=== PATIENT | female | born 1990 | race Caucasian/White ===

== ENCOUNTER 2019-11-14 11:37 | Emergency (ER) | payer OTHER, SELFPAY ==
[2019-11-14 11:42] VITALS: BP 123/80; PULSE 87; RESP 16; TEMP 37; O2SAT 98
--- NOTE | 2019-11-14 11:58 | ED.GENADULT ---
HPI - General Adult General Chief complaint: Upper Respiratory Infection Stated complaint: sore throat cough aches Time Seen by Provider: 11/14/19 11:58 Source: patient and RN notes reviewed Mode of arrival: ambulatory Limitations: no limitations History of Present Illness HPI narrative: 29-year-old female with complaints of upper respiratory infection symptoms, sore throat, body aches, congestion, and cough for 1 day. No treatment. Dry cough with intermittent productive cough (yellow phlegm). Rhinorrhea and nasal congestion. Exacerbating factors consists of smoke exposure. No high fevers or chills. No nausea, vomiting, and abdominal pain. Denies chest pain, dyspnea, coughing up blood, difficulty swallowing, jaw pain, dental pain, facial pain, foreign body sensation, and rash. Dezaray denies being , LMP 1 month ago. Some parts of this dictation were generated by voice recognition software and may contain typographical and/or grammatical inaccuracies. Related Data Home Medications Medication Instructions Recorded Confirmed [facility] 11/14/19 Allergies Allergy/AdvReac Type Severity Reaction Status Date / Time No Known Allergies Allergy Unknown Unverified 11/14/19 11:40 Review of Systems Review of Systems: Narrative: CONSTITUTIONAL: Denies fever, chills, sweats. EYES: Denies visual changes, redness, discharge. ENT: Complains of rhinorrhea, congestion, sore throat. Denies otalgia. CARDIOVASCULAR: Denies chest pain, palpitations, edema. RESPIRATORY: Denies dyspnea, wheezing. Complains of dry cough, intermittent productive cough. GASTROINTESTINAL: Denies abdominal pain, nausea, vomiting, diarrhea. GENITOURINARY: Denies dysuria, hematuria, abnormal discharge. SKIN: Denies rash or itching. MUSCULOSKELETAL: Denies acute back pain, joint pain. Complains of myalgia. NEUROLOGIC: Denies numbness or focal weakness. PSYCHIATRIC: Denies anxiety or depression. All systems reviewed & are unremarkable except as noted in HPI and below. [facility] Past Medical History Medical History (Updated 11/21/19 @ 16:30 by PAUL Miranda) Anxiety Asthma Depression Surgical History Surgical History (Updated 11/21/19 @ 16:30 by PAUL Miranda) History of tubal ligation Family History Family History (Updated 11/21/19 @ 16:30 by PAUL Miranda) Other No significant family history Social History Social History (Updated 11/21/19 @ 16:34 by PAUL Miranda) Smoking status: Former smoker Tobacco type: e-cigarettes Smoking end date: 10/05/19 Additional smoking assessment comments: stopped smoking cigarettes 09/23 and started vaping Alcohol intake: current Alcohol use details: occasionally Substance use: never Living arrangements: with family Occupation/Education: student Gender identity (if verbalized by the patient): Female Comments At time of signature, agree with nurse past medical, surgical, social, and family history. There is no relevant family history pertinent to the presenting complaint. Exam Narrative: Exam Narrative: GENERAL: This is a well-nourished, well-developed patient, in no apparent distress. Speaks in full sentences and ambulates with steady gait without dyspnea. HEAD: normocephalic, atraumatic. EYES: PERRL. Sclera clear/white. Vision is grossly intact. EARS: External ears normal, auditory canals clear and without drainage, TMs normal without perforation. Hearing grossly intact. NOSE: External nose normal with no obvious nasal discharge, nares with mild redness and enlarged turbinates, clear rhinorrhea. THROAT: Mucous membranes moist, posterior pharynx with PND, mild erythema, and no exudate to tonsils. Tonsils normal. No drainage, no concern for Peritonsillar abscess. No drooling, trismus, or neck swelling. NECK: Neck supple, non-tender without lymphadenopathy, masses or thyromegaly. CARDIOVASCULAR: Regular rate and rhythm without murmurs, ga
== END 2019-11-14 12:45 | disposition home or self-care (01) ==
PROVIDERS: Emergency Provider Nurse Practitioner Family
DX: B34.9 Viral infection, unspecified (principal)
CPT/HCPCS: 87081; 87804; 87880; 99213; G0463

== ENCOUNTER 2021-02-08 08:14 | Emergency (ER) | payer OTHER, SELFPAY ==
--- NOTE | 2021-02-08 08:17 | ED.URI ---
HPI - URI/Sore Throat General Chief Complaint: Upper Respiratory Infection Stated Complaint: sore throat Source: patient and RN notes reviewed Mode of arrival: ambulatory Limitations: no limitations History of Present Illness HPI Narrative: 30-year-old female presents with concern for sore throat. Reports 3 days ago she removed tonsil stones from the left side and since then has been having swollen, painful tonsil. Reports she has tried several saxe-[id number]-[id number] remedies such as Tylenol, ibuprofen, salt water gargles, cold and flu medicines with no relief. She denies rhinorrhea, nasal congestion, headache, nausea. Denies fever, body aches, chills, cough, shortness of breath. Denies any known sick contacts. MD elicited complaint: sore throat Related Data Home Medications Medication Instructions Recorded Confirmed albuterol sulfate 90 mcg INHALATION PRN 02/08/21 02/08/21 cetirizine [Zyrtec] 10 mg PO DAILY 02/08/21 02/08/21 fluticasone propionate [Flovent 220 mcg INHALATION DAILY 02/08/21 02/08/21 HFA] montelukast 10 mg PO DAILY 02/08/21 02/08/21 Allergies Allergy/AdvReac Type Severity Reaction Status Date / Time No Known Allergies Allergy Unknown Verified 02/08/21 08:45 Review of Systems Review of Systems: Narrative: CONSTITUTIONAL: Denies malaise, chills, sweats, or fever. EYES: Denies visual changes, redness, or discharge. ENT: Denies rhinorrhea, congestion, sinus pain, otalgia. Reports sore throat, swollen tonsils. CARDIOVASCULAR: Denies chest pain, palpitations, or edema. RESPIRATORY: Denies cough dyspnea. GASTROINTESTINAL: Denies abdominal pain, nausea, vomiting, diarrhea SKIN: Denies rash or itching. MUSCULOSKELETAL: Denies myalgia. NEUROLOGIC: Denies headache. All systems reviewed & are unremarkable except as noted in HPI and below PMFSH Past Medical History Medical History (Updated 02/08/21 @ 08:58 by Jessica Lan NP) Anxiety Asthma Depression Surgical History Surgical History (Updated 11/21/19 @ 16:30 by PAUL Miranda) History of tubal ligation Family History Family History (Updated 11/21/19 @ 16:30 by PAUL Miranda) Other No significant family history Social History Social History (Updated 11/21/19 @ 16:34 by PAUL Miranda) Smoking status: Former smoker Tobacco type: e-cigarettes/vaping Smoking end date: 10/05/19 Additional smoking assessment comments: stopped smoking cigarettes 09/23 and started vaping Alcohol intake: current Substance use: never Gender identity (if verbalized by the patient): Female Comments At time of signature, agree with nursing past medical, surgical, social and family history. There is no relevant family history pertinent to the presenting complaint Exam Narrative: Exam Narrative: GENERAL: Well-appearing, well-nourished, and in no acute distress. HEAD: Normocephalic EYES: PERRLA, conjunctivae clear ENT: Nares clear, turbinates pink, no discharge. Mucous membranes moist. TM pearly pitts with sharp light reflex bilaterally; no tragal tenderness. Oropharynx erythematous without lesions. Left tonsil erythematous TM enlarged and without exudate, no drooling, no hoarseness, no trismus, uvula midline. NECK: Supple. No lymphadenopathy CHEST: Clear to auscultation, breath sounds equal. No wheezing, rhonchi, rales, or stridor. No respiratory distress, speaks in full sentences. HEART: Regular rate and rhythm. No murmur heard. SKIN: Warm, dry, no rash. NEURO: Alert and oriented x3. PSYCH: Normal mood and affect Course Course Emergency Course: Patient is aware of diagnosis, understands and agrees to treatment plan. Anticipatory guidance given. Patient agrees to follow-up as directed and is aware of reasons to seek care at the emergency department. Portions of this record may have been created with voice recognition software Vital Signs Vital signs: Vital Signs Temperature 97.2 F L 02/08/21 08:25 Pulse Rate 82
[2021-02-08 08:25] VITALS: BP 130/80; PULSE 82; RESP 20; TEMP 36.2; O2SAT 99
== END 2021-02-08 09:04 | disposition home or self-care (01) ==
PROVIDERS: Emergency Provider Nurse Practitioner; PCP Internal Medicine
DX: J03.90 Acute tonsillitis, unspecified (principal); F17.200 Nicotine dependence, unspecified, uncomplicated; J45.909 Unspecified asthma, uncomplicated
CPT/HCPCS: 87081; 87880; 99213; G0463

== ENCOUNTER → 2021-12-20 14:35 | Outpatient (CLI) | payer OTHER, SELFPAY ==
--- NOTE | ~2021-12-20 | XR_ITS ---
EXAMINATION: XR chest 2V 12/20/2021 14:52 INDICATION: Acute bronchitis PROCEDURE: 2 view chest COMPARISON: No prior studies for comparison. FINDINGS: The lungs are clear. The cardiomediastinal silhouette is within normal limits. There are no pleural effusions. There is no pneumothorax suspected. IMPRESSION: 1: NO ACUTE CARDIOPULMONARY DISEASE. Reviewed, dictated and finalized at location B.
== END ==
PROVIDERS: PCP Internal Medicine; Visit Provider Internal Medicine
DX: J20.9 Acute bronchitis, unspecified (principal)
CPT/HCPCS: 71046

== ENCOUNTER → 2022-01-11 10:23 | Outpatient (CLI) | payer OTHER, SELFPAY ==
--- NOTE | ~2022-01-11 | XR_ITS ---
EXAMINATION: XR chest 2V EXAM DATE: 01/11/2022 10:36 INDICATION: Cough X 3 Months Dx Bronchitis/Asthma. TECHNIQUE: Frontal and lateral projections of the chest obtained and reviewed. Comparison is made to prior examination from 12/20/2021. FINDINGS: The lungs are clear. There are no pleural effusions. The cardiomediastinal silhouette is within normal limits. There is no pneumothorax suspected. The bones and soft tissues are unremarkab le. IMPRESSION: No acute cardiopulmonary findings. Reviewed, dictated and finalized at location A.
== END ==
PROVIDERS: PCP Internal Medicine; Visit Provider Internal Medicine
DX: R05.9 Cough, unspecified (principal); J45.909 Unspecified asthma, uncomplicated
CPT/HCPCS: 71046

== ENCOUNTER 2023-12-18 08:41 | Emergency (ER) | payer OTHER, SELFPAY ==
[2023-12-18 08:48] VITALS: BP 114/62; PULSE 93; RESP 20; TEMP 36.4; O2SAT 99
--- NOTE | 2023-12-18 08:49 | ED.GENADULT ---
HPI - General Adult General Chief complaint: Upper Respiratory Infection Stated complaint: sinus pressure/bumps on arms Source: patient, RN notes reviewed and old records reviewed Mode of arrival: ambulatory Limitations: no limitations History of Present Illness HPI narrative: 33-year-old female presents to [facility] with complaints sinus congestion, sinus pressure, postnasal drip this started over a month ago. Patient states symptoms will improve and then returned. Patient states now having thick hard yellow nasal drainage. Patient also complaining of bilateral eye irritation and redness. Patient taking imml-uur-lsusxzi medications with little relief. Related Data Home Medications Medication Instructions Recorded Confirmed albuterol sulfate 90 mcg/actuation 90 mcg inhalation PRN 02/08/21 12/18/23 aerosol inhaler cetirizine 10 mg tablet (Zyrtec) 10 mg PO DAILY 02/08/21 12/18/23 montelukast 10 mg tablet 10 mg PO DAILY 02/08/21 12/18/23 rosuvastatin 10 mg tablet 10 mg PO DAILY 12/18/23 12/18/23 venlafaxine 37.5 mg 37.5 mg PO DAILY 12/18/23 12/18/23 capsule,extended release 24 hr venlafaxine 75 mg capsule,extended 75 mg PO DAILY 12/18/23 12/18/23 release 24 hr Allergies Allergy/AdvReac Type Severity Reaction Status Date / Time No Known Allergies Allergy Unknown Verified 12/18/23 08:57 Review of Systems Constitutional: Constitutional: Reports no additional constitutional complaints, Denies body ache(s), Denies chills, Denies fatigue, Denies fever(s) and Denies headache(s) Eyes: Eyes: Reports no additional eye complaints, Denies blurry vision, Denies exophthalmos, Denies change in vision, Denies decreased night vision, Denies diplopia, Reports eye discharge, Reports irritation and Reports itchy eyes ENT: Reports system reviewed and no additional complaints, except as documented, Denies vertigo, Denies dizziness, Denies ear discharge, Denies otalgia, Denies facial pain, Reports headache(s), Reports nasal congestion, Reports nasal discharge, Reports sinus pain, Reports sinus pressure and Reports sore throat Cardiovascular: Cardiovascular: Reports no additional cardiovascular complaints, Denies chest pain, Denies chest pain at rest, Denies rapid heart rate and Denies dyspnea Respiratory: Respiratory: Reports no additional respiratory complaints, Denies chest congestion, Denies cough, Denies pain on inspiration, Denies pain with cough and Denies dyspnea Gastrointestinal: Gastrointestinal: Denies abdominal pain, Denies diarrhea, Denies nausea and Denies vomiting Integumentary/Breasts: Skin/Breast: Denies rash Neurologic: Reports system reviewed and no additional complaints, except as documented, Denies vertigo, Denies dizziness and Denies headache(s) Endocrine: Endocrine: Denies fatigue [facility] Past Medical History Medical History Anxiety Asthma Depression Surgical History Surgical History History of tubal ligation Family History Family History Other No significant family history Social History Social History Smoking status: Former smoker Tobacco type: e-cigarettes/vaping Smoking end date: 10/05/19 Additional smoking assessment comments: stopped smoking cigarettes 09/23 and started vaping Alcohol intake: current Alcohol use details: occasionally Substance use: never Living arrangements: with family Occupation/Education: student Gender identity (if verbalized by the patient): Female Comments At the time of my signature, I reviewed and agree with the nursing past medical, surgical, social, and family history. There is no relevant family history pertinent to the patient complaint. Exam Const: General: cooperative, healthy appearing, no acute distress and well no
== END 2023-12-18 09:05 | disposition home or self-care (01) ==
PROVIDERS: Emergency Provider Registered Nurse; PCP Internal Medicine
DX: J01.90 Acute sinusitis, unspecified (principal); H10.33 Unspecified acute conjunctivitis, bilateral; B37.31 Acute candidiasis of vulva and vagina; T36.95XA Adverse effect of unspecified systemic antibiotic, initial encounter; F17.290 Nicotine dependence, other tobacco product, uncomplicated; J45.909 Unspecified asthma, uncomplicated; F41.9 Anxiety disorder, unspecified; F32.A Depression, unspecified
CPT/HCPCS: 99213; G0463